=== PATIENT | male | born 1940 | race Caucasian/White ===

== ENCOUNTER 2018-08-02 07:32 | Day surgery (SDC) | payer MEDICARE, BC ==
[~2018-08-02 07:32] MED LIST: Lactated Ringers 1,000 ML IV SCH
[2018-08-02] MEDS ORDERED: fentaNYL 100 MCG/2 ML SDV ONE (08:37)
[2018-08-02] MEDS ORDERED: Propofol 200 MG/20 ML SDV ONE (08:37)
--- NOTE | 2018-08-02 12:42 | OR ---
PREOPERATIVE DIAGNOSES: Positive FIT test, screening colonoscopy. POSTOPERATIVE DIAGNOSES: Sigmoid diverticulosis, polyps x2 removed. PROCEDURE PROPOSED: Total flexible colonoscopy. PROCEDURE DONE: Total flexible colonoscopy with polypectomy x2. INDICATION: This is a 78-year-old gentleman who comes in for his 1st colonoscopic exam. He was found to have a positive FIT test on recent annual exam. TECHNIQUE: The patient brought to the endoscopy suite, placed in left lateral decubitus position. He was sedated per [address] [facility] with propofol. The flexible video colonoscope was then passed transanally and under visualization advanced to the cecum. The sacroiliac area was unremarkable as well as the ascending colon, but in the transverse colon at 90 cm, he was found to have a small polyp removed with 2 bites of the cold biopsy forceps and submitted for pathologic examination. The remainder of the transverse and descending colon were unremarkable. The sigmoid colon revealed mild diverticulosis and at 20 cm, there was a 2nd polyp, again removed with 1 bite of the cold biopsy forceps and submitted for pathologic examination, and the remainder of the rectosigmoid was normal as the scope was then withdrawn. He tolerated procedure well. FINAL IMPRESSION: 1. Colonic polyps x2, 90 and 20 cm, removed. 2. Sigmoid diverticulosis. PLAN: The patient will be sent a letter with pathology report and I felt that at his age he does not need any future followup examinations. SCM: 08/02/2018 10:02:18 MODL: 08/02/2018 12:36:09 /[id number]
--- NOTE | 2018-08-13 16:10 | LETTER ---
08/12/2018 RE: MADELINE Pascual ARVIZU : 1940 Dear Mr. Arvizu The polyps removed from your colon were benign, but one was considered a precancerous one and the other one was not. Depending on your health, I would say you should consider 1 more repeat examination in five years' time to make sure that you have not formed any new polyps. If you have any further questions regarding this, feel free to call. Respectfully, JANUARY
== END 2018-08-02 11:45 | disposition home or self-care (01) ==
LOC: VM.SDS 07:32
PROVIDERS: ATTEND Surgery
DX: R19.5 Other fecal abnormalities (principal); D12.3 Benign neoplasm of transverse colon; K63.5 Polyp of colon; K57.30 Diverticulosis of large intestine without perforation or abscess without bleeding; I11.0 Hypertensive heart disease with heart failure; I50.9 Heart failure, unspecified; E66.9 Obesity, unspecified; Z68.39 Body mass index [BMI] 39.0-39.9, adult; I25.810 Atherosclerosis of coronary artery bypass graft(s) without angina pectoris; E78.5 Hyperlipidemia, unspecified; N40.1 Benign prostatic hyperplasia with lower urinary tract symptoms; Z79.899 Other long term (current) drug therapy
CPT/HCPCS: 00811; 45380; 88305; J2704; J3010; J7120

== ENCOUNTER 2018-11-05 09:09 | Emergency (ER) | payer MEDICARE, BC ==
[2018-11-05] MEDS ORDERED: Sodium Chloride 0.9% 10 ML Syringe FLUSH PRN (09:23)
[2018-11-05] MEDS: Sodium Chloride 0.9% 1,000 ML IV ONE (09:29)
--- NOTE | 2018-11-05 10:01 | EDM.PDOC ---
ED HPI GENERAL MEDICAL PROBLEM - General Chief Complaint: General Stated Complaint: PASSED OUT, THROWING UP Time Seen by Provider: 11/05/18 09:10 Source of Information: Reports: Patient, EMS History Limitations: Reports: No Limitations - History of Present Illness INITIAL COMMENTS - FREE TEXT/NARRATIVE: Pt. states that he woke up this AM feeling short of breath, chest pain, and lightheadedness. He states that he was sitting at his kitchen table. He states that he experienced an odd sensation in his chest and subsequently had a LOC. He woke up on the floor. Unknown exactly how long he was unresponsive, but it was brief. He struck his head on the way down and sustained an abrasion to his head. Pt. he been having similar symptoms in the recent past. He was seen in the clinic 10/16/18 for increased shortness of breath, intermittent chest pain, and postural lightheadedness, particularly when he is bending over tending to his garden. Today, his complaint on admission to ER is nausea (he did receive zofran 4mg IV) and extreme fatigue, worse than normal. He was incontinent of urine during this even this AM. Pt. has a significant cardiac history and underwent CABG in 2001 and angiogram for unstable angina with CRUM in 2013 with some stenosis but nothing meeting criteria for stenting. His last EF was 60% but at one point it was down to 35%. He is currently on maximal medical treatment for CAD/CHF including lasix, imdur , ACEI, and carvedilol. Pt. had a carotid US which showed 67% occlusion L carotid with plans to medically manage the disease at this point. Pt. denies any fever, chills, blood in stools, current chest pain, abdominal pain, or other complaints other than the extreme fatigue and nausea/vomiting. He states that the shortness of breath has improved. Pt. was incontinent of urine during this even as well. Onset: Today Location: Reports: Head, Generalized Associated Symptoms: Reports: Chest Pain, Shortness of Breath - Related Data Allergies Allergy/AdvReac Type Severity Reaction Status Date / Time No Known Allergies Allergy Verified 11/05/18 10:00 Home Meds: Home Meds Carvedilol [Coreg] 12.5 mg PO BID 05/28/13 [History] Furosemide [Lasix] 20 mg PO ASDIRECTED 05/28/13 [History] Isosorbide Mononitrate [Imdur] 15 mg PO DAILY 05/28/13 [History] Lisinopril 20 mg PO DAILY 05/28/13 [History] Nitroglycerin [Nitrostat] 0.4 mg SL ASDIRECTED PRN 05/28/13 [History] Simvastatin [Zocor] 20 mg PO BEDTIME 05/28/13 [History] Acetaminophen [Tylenol] 650 mg PO Q4H PRN 08/01/18 [History] Aspirin [Ecotrin] 81 mg PO DAILY 08/01/18 [History] Celecoxib 1 tab PO DAILY 08/01/18 [History] Cyanocobalamin (Vitamin B-12) [B-12] 1,000 mcg PO DAILY 08/01/18 [History] Tamsulosin HCl 1 cap PO DAILY 08/01/18 [History] Past Medical History HEENT History: Reports: Cataract, Impaired Vision Cardiovascular History: Reports: CAD, Heart Failure, High Cholesterol, Hypertension, Other (See Below) Other Cardiovascular History: Left carotid artery stenosis Respiratory History: Reports: Bronchitis, Recurrent Gastrointestinal History: Reports: GERD Other Gastrointestinal History: Change in bowel habits Genitourinary History: Reports: BPH, Prostate Disorder Musculoskeletal History: Reports: Back Pain, Chronic, Osteoarthritis, Other ( See Below) Other Musculoskeletal History: SI joint pain Neurological History: Reports: Vertigo Psychiatric History: Reports: Depression Endocrine/Metabolic History: Reports: Obesity/BMI 30+ Hematologic History: Reports: None Immunologic History: Reports: None Oncologic (Cancer) History: Reports: Basal Cell Carcinoma Dermatologic History: Reports: Other (See Below) Other Dermatologic History: Actinic keratosis - Past Surgical History Cardiovascular Surgical History: Reports: Coronary Artery Bypass GI Surgical History: Reports: Hernia Repair/Other Musculoskeletal Surgical History: Reports: None Oncologic Surgical History: Reports: Other (See Below) Other Oncologic Surgeries/Procedures: Biopsy of forehead ED ROS GENERAL - Review of Systems Review Of Systems: See Below Constitutional: Reports: Malaise, Fatigue. Denies: Fever, Chills, Diaphoresis HEENT: Reports: No Symptoms Respiratory: Reports: Shortness of Breath. Denies: Cough Cardiovascular: Reports: Chest Pain (resolved) Endocrine: Reports: No Symptoms GI/Abdominal: Reports: Nausea, Vomiting : Reports: No Symptoms, Incontinence Musculoskeletal: Reports: No Symptoms Skin: Reports: No Symptoms Neurological: Reports: Dizziness, Syncope Psychiatric: Reports: No Symptoms Hematologic/Lymphatic: Reports: No Symptoms Immunologic: Reports: No Symptoms ED EXAM, GENERAL - Physical Exam Exam: See Below Exam Limited By: No Limitations General Appearance: Alert, WD/WN, No Apparent Distress Eye Exam: Bilateral Eye: EOMI, Normal Fundi, Normal Inspection, PERRL Throat/Mouth: Normal Inspection, Normal Lips, No Airway Compromise Head: Other (scalp abrasion to L forehead area.) Neck: Normal Inspection, Supple, Non-Tender Respiratory/Chest: No Respiratory Distress, Lungs Clear, Normal Breath Sounds, No Accessory Muscle Use, Chest Non-Tender Cardiovascular: Normal Peripheral Pulses, Regular Rate, Rhythm, No Edema, No JVD GI/Abdominal: Soft, Non-Tender, No Organomegaly, No Distention, No Mass (Male) Exam: Other (incontinent) Rectal (Males) Exam: Deferred Back Exam: Normal Inspection, Full Range of Motion Extremities: Normal Inspection, Normal Range of Motion, Non-Tender, No Pedal Edema, Normal Capillary Refill Neurological: Alert, Oriented, CN II-XII Intact, Normal Cognition, No Motor/ Sensory Deficits Psychiatric: Normal Affect, Normal Mood Skin Exam: Warm, Dry, Intact, Normal Color, No Rash Lymphatic: No Adenopathy EKG INTERPRETATION Rhythm: NSR [place]: Normal P-Wave: Present QRS: Normal ST-T: Normal QT: Normal Course - Vital Signs Last Recorded V/S: Last Vital Signs Temp 35.9 C 11/05/18 09:10 Pulse 82 11/05/18 11:22 Resp 14 11/05/18 11:22 BP 137/87 11/05/18 11:22 Pulse Ox 96 11/05/18 11:22 - Orders/Labs/Meds Orders: Active Orders 24 hr Category Date Time Status EKG Documentation Completion [RC] STAT Care 11/05/18 09:21 Active CBC W/O DIFF,HEMOGRAM [HEME] Q3D Lab 11/06/18 07:00 Ordered CBC W/O DIFF,HEMOGRAM [HEME] Q3D Lab 11/09/18 07:00 Ordered CBC W/O DIFF,HEMOGRAM [HEME] Q3D Lab 11/12/18 07:00 Ordered CBC W/O DIFF,HEMOGRAM [HEME] Q3D Lab 11/15/18 07:00 Ordered CBC W/O DIFF,HEMOGRAM [HEME] Q3D Lab 11/18/18 07:00 Ordered CBC W/O DIFF,HEMOGRAM [HEME] Q3D Lab 11/21/18 07:00 Ordered CBC W/O DIFF,HEMOGRAM [HEME] Q3D Lab 11/24/18 07:00 Ordered UA W/MICROSCOPIC [URIN] Stat Lab 11/05/18 09:22 Ordered Heparin Sodium/0.45% NaCl [Heparin 25,000 Units in 1/2 Med 11/05/18 10:25 Active NS 500 ML] 25,000 units in 500 ml IV NOW Sodium Chloride 0.9% [Saline Flush] Med 11/05/18 09:23 Active 10 ml FLUSH ASDIRECTED PRN Peripheral IV Insertion Adult [OM.PC] Routine Oth 11/05/18 09:23 Ordered Medication Orders Heparin Sodium/Sodium Chloride (Heparin 25,000 Units In 1/2 Ns 500 Ml) 25,000 units in 500 mls @ 20 mls/hr IV NOW STA; Protocol Stop: 11/06/18 11:24 Last Admin: 11/05/18 10:35 Dose: 20 mls/hr Sodium Chloride (Saline Flush) 10 ml FLUSH ASDIRECTED PRN PRN Reason: Keep Vein Open Labs: Laboratory Tests 11/05/18 11/05/18 11/05/18 Range/Units 09:35 09:35 09:35 WBC 7.1 (4.0-10.0) x10^3/uL RBC 4.47 L (4.5-6.0) x10^6/uL Hgb 13.9 L (14.0-18.0) g/dL Hct 41.5 (40.0-52.0) % MCV 92.8 (78.0-93.0) fL MCH 31.1 (26.0-32.0) pg MCHC 33.5 (32.0-36.0) g/dL RDW Coeff of Charla 13.2 (10.0-15.0) % Plt Count 109 L (130-400) x10^3/uL Neut % (Auto) 76.4 (50.0-80.0) % Lymph % (Auto) 14.1 L (25.0-50.0) % Ransom % (Auto) 6.2 (2.0-11.0) % Eos % (Auto) 3.2 (0.0-4.0) % Baso % (Auto) 0.1 L (0.2-1.2) % PT 10.6 (10.0-12.8) SEC INR 0.9 L (2.0-3.5) D-Dimer, Quantitative 6.80 H (<=0.58) mg/LFEU Sodium 140 (136-145) mmol/L Potassium 4.0 (3.5-5.1) mmol/L Chloride 104 (98-107) mmol/L Carbon Dioxide 25 (21-32) mmol/L Anion Gap 15.0 (10-20) mmol/L BUN 20 H (7-18) mg/dL Creatinine 1.1 (0.70-1.30) mg/dL Est Cr Clr Drug Dosing TNP Estimated GFR (MDRD) > 60 Glucose 157 H (74-106) mg/dL Lactic Acid (0.4-2.0) mmol/L Calcium 8.6 (8.5-10.1) mg/dL Corrected Calcium 9.40 (8.5-10.1) mg/dL Phosphorus 2.5 L (2.6-4.7) mg/dL Magnesium 1.9 (1.8-2.4) mg/dL Total Bilirubin 0.6 (0.2-1.0) mg/dL AST 19 (15-37) U/L ALT 23 (16-63) U/L Alkaline Phosphatase 93 (46-116) U/L Troponin I 0.232 H* (<=0.056) ng/mL C-Reactive Protein 1.3 H (<=0.9) mg/dL Total Protein 7.1 (6.4-8.2) g/dL Albumin 3.0 L (3.4-5.0) g/dL Globulin 4.1 Albumin/Globulin Ratio 0.73 TSH, Ultra Sensitive 2.079 (0.358-3.74) uIU/mL 11/05/18 Range/Units 09:35 WBC (4.0-10.0) x10^3/uL RBC (4.5-6.0) x10^6/uL Hgb (14.0-18.0) g/dL Hct (40.0-52.0) % MCV (78.0-93.0) fL MCH (26.0-32.0) pg MCHC (32.0-36.0) g/dL RDW Coeff of Charla (10.0-15.0) % Plt Count (130-400) x10^3/uL Neut % (Auto) (50.0-80.0) % Lymph % (Auto) (25.0-50.0) % Ransom % (Auto) (2.0-11.0) % Eos % (Auto) (0.0-4.0) % Baso % (Auto) (0.2-1.2) % PT (10.0-12.8) SEC INR (2.0-3.5) D-Dimer, Quantitative (<=0.58) mg/LFEU Sodium (136-145) mmol/L Potassium (3.5-5.1) mmol/L Chloride (98-107) mmol/L Carbon Dioxide (21-32) mmol/L Anion Gap (10-20) mmol/L BUN (7-18) mg/dL Creatinine (0.70-1.30) mg/dL Est Cr Clr Drug Dosing Estimated GFR (MDRD) Glucose (74-106) mg/dL Lactic Acid 1.5 (0.4-2.0) mmol/L Calcium (8.5-10.1) mg/dL Corrected Calcium (8.5-10.1) mg/dL Phosphorus (2.6-4.7) mg/dL Magnesium (1.8-2.4) mg/dL Total Bilirubin (0.2-1.0) mg/dL AST (15-37) U/L ALT (16-63) U/L Alkaline Phosphatase (46-116) U/L Troponin I (<=0.056) ng/mL C-Reactive Protein (<=0.9) mg/dL Total Protein (6.4-8.2) g/dL Albumin (3.4-5.0) g/dL Globulin Albumin/Globulin Ratio TSH, Ultra Sensitive (0.358-3.74) uIU/mL Meds: Medications Generic Name Dose Route Start Last Admin Trade Name Freq PRN Reason Stop Dose Admin Heparin Sodium/Sodium Chloride 25,000 units in 500 mls @ 20 mls/hr 11/05/18 10 :25 11/05/18 10:35 Heparin 25,000 Units In 1/2 Ns 500 Ml IV 11/06/18 11:24 20 mls/hr NOW STA Administration Protocol Sodium Chloride 10 ml 11/05/18 09:23 Saline Flush FLUSH ASDIRECTED PRN Keep Vein Open Discontinued Medications Generic Name Dose Route Start Last Admin Trade Name Nereida PRN Reason Stop Dose Admin Aspirin 324 mg 11/05/18 10:24 11/05/18 10:24 Aspirin PO 11/05/18 10:25 324 mg ONETIME ONE Administration Heparin Sodium (Porcine) 4,000 units 11/05/18 10:24 11/05/18 11:07 Heparin Sodium IVPUSH 11/05/18 10:25 Not Given .BOLUS ONE Heparin Sodium (Porcine) 4,000 units 11/05/18 10:25 11/05/18 10:33 Heparin Sodium IVPUSH 11/05/18 10:26 4,000 units .BOLUS ONE Administration Sodium Chloride 1,000 mls @ 1,000 mls/hr 11/05/18 09:23 11/05/18 09:29 Normal Saline IV 11/05/18 10:22 1,000 mls/hr .BOLUS ONE Administration Iopamidol 100 ml 11/05/18 10:45 11/05/18 10:58 Isovue-300 (61%) IVPUSH 11/05/18 10:46 100 ml ONETIME ONE Administration Metoclopramide HCl 5 mg 11/05/18 10:03 11/05/18 10:10 Reglan IVPUSH 11/05/18 10:04 5 mg ONETIME ONE Administration - Radiology Interpretation Free Text/Narrative:: CT angiogram shows large bilateral PE, appears larger and more complex on the R. CT brain is negative for acute pathology Chest x-ray is negative. - Re-Assessments/Exams Free Text/Narrative Re-Assessment/Exam: IV access had been established. He received 4 mg zofran IV. He was given reglan 5 mg Iv for continued nausea. He received a total of 1 liter of NS at this point. He was heparinized with a 4000U/bolus and a 1000U/hr infusion. He denies any pain or other symptoms at this time. Departure - Departure Time of Disposition: 11:40 Disposition: DC/Tfer to Acute Hospital 02 Clinical Impression: PE, Pulmonary embolism - Discharge Information Referrals: Nati Villalpando DO [Primary Care Provider] - Forms: ED Department Discharge, Interfacility Transfer EMTALA - Problem List Review Problem List Initiated/Reviewed/Updated: Yes - My Orders Last 24 Hours: My Active Orders 11/05/18 09:21 EKG Documentation Completion [RC] STAT 11/05/18 09:22 UA W/MICROSCOPIC [URIN] Stat 11/05/18 09:23 Sodium Chloride 0.9% [Saline Flush] 10 ml FLUSH ASDIRECTED PRN Peripheral IV Insertion Adult [OM.PC] Routine 11/05/18 10:25 Heparin Sodium/0.45% NaCl [Heparin 25,000 Units in 1/2 NS 500 ML] 25,000 units in 500 ml IV NOW 11/06/18 07:00 CBC W/O DIFF,HEMOGRAM [HEME] Q3D 11/09/18 07:00 CBC W/O DIFF,HEMOGRAM [HEME] Q3D 11/12/18 07:00 CBC W/O DIFF,HEMOGRAM [HEME] Q3D 11/15/18 07:00 CBC W/O DIFF,HEMOGRAM [HEME] Q3D 11/18/18 07:00 CBC W/O DIFF,HEMOGRAM [HEME] Q3D 11/21/18 07:00 CBC W/O DIFF,HEMOGRAM [HEME] Q3D 11/24/18 07:00 CBC W/O DIFF,HEMOGRAM [HEME] Q3D - Assessment/Plan Last 24 Hours: My Active Orders 11/05/18 09:21 EKG Documentation Completion [RC] STAT 11/05/18 09:22 UA W/MICROSCOPIC [URIN] Stat 11/05/18 09:23 Sodium Chloride 0.9% [Saline Flush] 10 ml FLUSH ASDIRECTED PRN Peripheral IV Insertion Adult [OM.PC] Routine 11/05/18 10:25 Heparin Sodium/0.45% NaCl [Heparin 25,000 Units in 1/2 NS 500 ML] 25,000 units in 500 ml IV NOW 11/06/18 07:00 CBC W/O DIFF,HEMOGRAM [HEME] Q3D 11/09/18 07:00 CBC W/O DIFF,HEMOGRAM [HEME] Q3D 11/12/18 07:00 CBC W/O DIFF,HEMOGRAM [HEME] Q3D 11/15/18 07:00 CBC W/O DIFF,HEMOGRAM [HEME] Q3D 11/18/18 07:00 CBC W/O DIFF,HEMOGRAM [HEME] Q3D 11/21/18 07:00 CBC W/O DIFF,HEMOGRAM [HEME] Q3D 11/24/18 07:00 CBC W/O DIFF,HEMOGRAM [HEME] Q3D Plan: Spoke with Dr. Peterson, hospitalist at [facility] in [place]. He accepts the patient in transfer. He will be admitted to the intermediate care unit. Family is aware. He will be transferred via [facility] ground ambulance.
[2018-11-05] MEDS: Metoclopramide 10 MG/2 ML SDV IVPUSH ONE (10:10)
--- NOTE | 2018-11-05 10:17 | CR ---
[id number] RAD/RAD Chest PA or AP 1V EXAM: RAD Chest PA or AP 1V INDICATION: SYNCOPE COMPARISON: None. DISCUSSION: Moderate to advanced cardiomegaly. Status post median sternotomy. No infiltrate, effusion, pneumothorax, or edema. IMPRESSION: No acute findings in the chest. Ottoniel Troy MD 11/05/18 1016 Thank you for allowing us to participate in the care of your patient.
[2018-11-05 10:18] LABS: CHLORIDE,CL 104 mmol/L (98-107); SODIUM,NA 140 mmol/L (136-145)
--- NOTE | 2018-11-05 10:21 | CT ---
[id number] CT/CT Head WO IV EXAM: CT Head WO IV CLINICAL DATA: TRAUMA. SYNCOPE COMPARISON: CORRELATION IS MADE WITH THE EXAM OF JULY 06, 2015. FINDINGS: There is no mass or mass effect. There is no hemorrhage or hydrocephalus. There are no extra-axial fluid collections. There are no sites of abnormal attenuation. IMPRESSION: NO PLAIN CT EVIDENCE OF ACUTE INTRACRANIAL PROCESS. Shawn Asif MD 11/05/18 2169 Thank you for allowing us to participate in the care of your patient.
[2018-11-05] MEDS: Aspirin 81 MG Tab.Chew PO ONE (10:24)
[2018-11-05] MEDS: Heparin Sodium 5,000 Units/ML Vial IVPUSH ONE ×2 (10:33→11:07)
[2018-11-05] MEDS: Heparin Sodium/0.45% NaCl 25,000 UNITS/500 ML BAG IV STA (10:35)
[2018-11-05] MEDS: Iopamidol 612 MG/ML 100 ML Bottle IVPUSH ONE (10:58)
--- NOTE | 2018-11-05 11:31 | CT ---
[id number] CT/CTA Chest Exam: CTA Chest Clinical Data: POSITIVE D-DIMER. SYNCOPE COMPARISON: NO PREVIOUS SIMILAR EXAM IS AVAILABLE FINDINGS: Extensive bilateral emboli are seen. Report called at time of dictation. The lungs are clear. There is no mediastinal mass or adenopathy. There is no adrenal mass. The great vessels are intact. There is a cyst measuring about 8 cm in diameter in segment VIII of the right lobe of the liver. IMPRESSION: LARGE DEGREE OF BILATERAL PULMONARY EMBOLI. Shawn Asif MD 11/05/18 0451 Thank you for allowing us to participate in the care of your patient.
== END 2018-11-05 12:05 | disposition short-term general hospital (02) ==
LOC: VM.ED 09:09
DX: I26.99 Other pulmonary embolism without acute cor pulmonale (principal); I11.0 Hypertensive heart disease with heart failure; I50.9 Heart failure, unspecified; F32.9 Major depressive disorder, single episode, unspecified; I25.10 Atherosclerotic heart disease of native coronary artery without angina pectoris; Z95.1 Presence of aortocoronary bypass graft; Z79.82 Long term (current) use of aspirin; Z79.899 Other long term (current) drug therapy
CPT/HCPCS: 36415; 70450; 71045; 71275; 80053; 81001; 83605; 83735; 84100; 84443; 84484; 85025; 85379; 85610; 86140; 93005; 96361; 96365; 96375; 96376; 99285-25; A9270-GY; J1644; J2765; J7030; Q9967

== ENCOUNTER 2019-12-06 17:11 | Emergency (ER) | payer MEDICARE, BC ==
[2019-12-06] MEDS ORDERED: cefTRIAXone 1 GM Vial IM ONE (17:34)
[2019-12-06] MEDS ORDERED: Take Home: Cephalexin 500 MG Cap, 4 Cap Pack PO ONE (17:35)
--- NOTE | 2019-12-06 17:43 | EDM.PDOC ---
ED HPI GENERAL MEDICAL PROBLEM - General Chief Complaint: Skin Complaint Stated Complaint: LEG PAIN Time Seen by Provider: 12/06/19 17:15 Source of Information: Reports: Patient History Limitations: Reports: No Limitations - History of Present Illness INITIAL COMMENTS - FREE TEXT/NARRATIVE: Patient presents today with concerns of a possible wound infection. Slipped while getting out of the pontoon one week ago and landed on the dock, cutting his leg. States wound is starting to drain, skin around is getting very red and warm. Drainage has been yellowish, thick at times. Has more discomfort now when he is walking. No fevers. Onset: Gradual Duration: Day(s): Location: Reports: Lower Extremity, Left Quality: Reports: Ache Severity: Mild Improves with: Reports: Rest Worsens with: Reports: Movement Associated Symptoms: Denies: Fever/Chills - Related Data Allergies Allergy/AdvReac Type Severity Reaction Status Date / Time No Known Allergies Allergy Verified 12/06/19 17:31 Home Meds: Home Meds Furosemide [Lasix] 20 mg PO ASDIRECTED 05/28/13 [History] Isosorbide Mononitrate [Imdur] 15 mg PO DAILY 05/28/13 [History] Lisinopril 20 mg PO DAILY 05/28/13 [History] Nitroglycerin [Nitrostat] 0.4 mg SL ASDIRECTED PRN 05/28/13 [History] Simvastatin [Zocor] 20 mg PO BEDTIME 05/28/13 [History] carvediloL [Coreg] 12.5 mg PO BID 05/28/13 [History] Acetaminophen [Tylenol] 650 mg PO Q4H PRN 08/01/18 [History] Aspirin [Ecotrin] 81 mg PO DAILY 08/01/18 [History] Celecoxib 1 tab PO DAILY 08/01/18 [History] Cyanocobalamin (Vitamin B-12) [B-12] 1,000 mcg PO DAILY 08/01/18 [History] Tamsulosin HCl 1 cap PO DAILY 08/01/18 [History] Past Medical History HEENT History: Reports: Cataract, Impaired Vision Cardiovascular History: Reports: CAD, Heart Failure, High Cholesterol, Hypertension, Other (See Below) Other Cardiovascular History: Left carotid artery stenosis Respiratory History: Reports: Bronchitis, Recurrent Gastrointestinal History: Reports: GERD Other Gastrointestinal History: Change in bowel habits Genitourinary History: Reports: BPH, Prostate Disorder Musculoskeletal History: Reports: Back Pain, Chronic, Osteoarthritis, Other (See Below) Other Musculoskeletal History: SI joint pain Neurological History: Reports: Vertigo Psychiatric History: Reports: Depression Endocrine/Metabolic History: Reports: Obesity/BMI 30+ Hematologic History: Reports: None Immunologic History: Reports: None Oncologic (Cancer) History: Reports: Basal Cell Carcinoma Dermatologic History: Reports: Other (See Below) Other Dermatologic History: Actinic keratosis - Past Surgical History Cardiovascular Surgical History: Reports: Coronary Artery Bypass GI Surgical History: Reports: Hernia Repair/Other Musculoskeletal Surgical History: Reports: None Oncologic Surgical History: Reports: Other (See Below) Other Oncologic Surgeries/Procedures: Biopsy of forehead Social & Family History - Tobacco Use Smoking Status *Q: Unknown Ever Smoked ED ROS GENERAL - Review of Systems Review Of Systems: See Below Constitutional: Denies: Fever, Chills, Malaise, Weakness, Fatigue HEENT: Reports: No Symptoms Respiratory: Reports: No Symptoms Cardiovascular: Reports: No Symptoms Endocrine: Reports: No Symptoms GI/Abdominal: Reports: No Symptoms Musculoskeletal: Reports: Leg Pain Skin: Reports: Wound ED EXAM, SKIN/RASH Exam: See Below Exam Limited By: No Limitations General Appearance: Alert, WD/WN, No Apparent Distress Extremities: Other (Patient has 9 cm linear superficial abrasion/laceration to left leg. Much of it is scabbed but has several open areas now that are oozing purulent drainage. Surrounding tissue to anterior sommer and lateral sommer is red, warm to the touch. ) Course - Orders/Labs/Meds Meds: Medications Discontinued Medications Generic Name Dose Route Start Last Admin Trade Name Nereida PRN Reason Stop Dose Admin Ceftriaxone Sodium 1 gm 12/06/19 17:34 Rocephin IM 12/06/19 17:35 ONETIME ONE Cephalexin 1 packet 12/06/19 17:35 Take Home: Cephalexin 500 Mg, 4 Cap Pack PO 12/06/19 17:36 ONETIME ONE Lidocaine HCl 5 ml 12/06/19 17:35 Xylocaine-Mpf 1% INJECT 12/06/19 17:36 ONETIME ONE - Re-Assessments/Exams Free Text/Narrative Re-Assessment/Exam: 12/06/19 17:41 Bacitracin and telfa applied to wound. Will give Rocephin today. Start Cephalexin in am. Departure - Departure Time of Disposition: 17:41 Disposition: Home, Self-Care 01 Condition: Fair Clinical Impression: Cellulitis Qualifiers: Site of cellulitis: extremity Laterality: left - Discharge Information *PRESCRIPTION DRUG MONITORING PROGRAM REVIEWED*: No *COPY OF PRESCRIPTION DRUG MONITORING REPORT IN PATIENT KAVON: No Instructions: Cellulitis, Adult Referrals: Nati Villalpando, [Primary Care Provider] - Forms: ED Department Discharge Care Plan Goals: 1. Keep wound clean and dry, cover when needed 2. Cephalexin 500 mg four times a day for 10 days 3. Watch for increasing redness, increased pain or warmth 4. Tylenol for discomfort 5. Follow up with primary care provider if worsening concerns.
== END 2019-12-06 18:13 | disposition home or self-care (01) ==
LOC: VM.ED 17:11
DX: L03.116 Cellulitis of left lower limb (principal); I11.0 Hypertensive heart disease with heart failure; I50.9 Heart failure, unspecified; I25.10 Atherosclerotic heart disease of native coronary artery without angina pectoris; E78.00 Pure hypercholesterolemia, unspecified; N40.0 Benign prostatic hyperplasia without lower urinary tract symptoms; F32.9 Major depressive disorder, single episode, unspecified; E66.9 Obesity, unspecified; Z79.899 Other long term (current) drug therapy; Z79.82 Long term (current) use of aspirin
CPT/HCPCS: 96372; 99282; A9270; J0696; J2001; 99284-GF

== ENCOUNTER 2020-02-04 08:50 | Emergency (ER) | payer MEDICARE, BC ==
[2020-02-04] MEDS: Oxymetazoline 0.05% Nasal Spray 30 ML Bottle NAS ONE (08:50)
--- NOTE | 2020-02-04 09:03 | EDM.PDOC ---
ED HPI GENERAL MEDICAL PROBLEM - General Stated Complaint: nose bleeding Time Seen by Provider: 02/04/20 08:52 Source of Information: Reports: Patient History Limitations: Reports: No Limitations - History of Present Illness INITIAL COMMENTS - FREE TEXT/NARRATIVE: Patient comes emergency department today from home with concerns of a nosebleed. For the past couple of hours the patient is struggled with a nosebleed at home. He has had no recent trauma. He has not struggled with nosebleeds in the past. There has been no trauma to his nose. He has had no sinus congestion drainage or irritation. No sinus pressure. No fever no chills. He is on Coumadin chronically for pulmonary embolism. He has not had any change in his anticoagulation for quite some time. NO COVID exposure NO COVID concerns. - Related Data Allergies Allergy/AdvReac Type Severity Reaction Status Date / Time No Known Allergies Allergy Verified 12/06/19 17:31 Home Meds: Home Meds Furosemide [Lasix] 20 mg PO ASDIRECTED 05/28/13 [History] Isosorbide Mononitrate [Imdur] 15 mg PO DAILY 05/28/13 [History] Lisinopril 20 mg PO DAILY 05/28/13 [History] Nitroglycerin [Nitrostat] 0.4 mg SL ASDIRECTED PRN 05/28/13 [History] Simvastatin [Zocor] 20 mg PO BEDTIME 05/28/13 [History] carvediloL [Coreg] 3.125 mg PO BID 05/28/13 [History] Acetaminophen [Tylenol] 650 mg PO Q4H PRN 08/01/18 [History] Aspirin [Ecotrin] 81 mg PO DAILY 08/01/18 [History] Cyanocobalamin (Vitamin B-12) [B-12] 1,000 mcg PO DAILY 08/01/18 [History] Tamsulosin HCl 1 cap PO DAILY 08/01/18 [History] Diclofenac Sodium [Voltaren 1% Gel] 2 gm TOP QID PRN 12/06/19 [History] Meclizine [Antivert] 12.5 mg PO Q4H PRN 12/06/19 [History] Warfarin [Coumadin] 5 mg PO DAILY 12/06/19 [History] Past Medical History HEENT History: Reports: Cataract, Impaired Vision Cardiovascular History: Reports: CAD, Heart Failure, High Cholesterol, Hypertension, Other (See Below) Other Cardiovascular History: Left carotid artery stenosis Respiratory History: Reports: Bronchitis, Recurrent Gastrointestinal History: Reports: GERD Other Gastrointestinal History: Change in bowel habits Genitourinary History: Reports: BPH, Prostate Disorder Musculoskeletal History: Reports: Back Pain, Chronic, Osteoarthritis, Other (See Below) Other Musculoskeletal History: SI joint pain Neurological History: Reports: Vertigo Psychiatric History: Reports: Depression Endocrine/Metabolic History: Reports: Obesity/BMI 30+ Hematologic History: Reports: None Immunologic History: Reports: None Oncologic (Cancer) History: Reports: Basal Cell Carcinoma Dermatologic History: Reports: Other (See Below) Other Dermatologic History: Actinic keratosis - Past Surgical History Cardiovascular Surgical History: Reports: Coronary Artery Bypass GI Surgical History: Reports: Hernia Repair/Other Musculoskeletal Surgical History: Reports: None Oncologic Surgical History: Reports: Other (See Below) Other Oncologic Surgeries/Procedures: Biopsy of forehead Social & Family History - Family History Family Medical History: Noncontributory - Caffeine Use Caffeine Use: Reports: None ED ROS ENT - Review of Systems Review Of Systems: Comprehensive ROS is negative, except as noted in HPI. ED EXAM, ENT - Physical Exam Exam: See Below Exam Limited By: No Limitations General Appearance: Alert, WD/WN, No Apparent Distress Eye Exam: Bilateral Eye: Normal Inspection Ears: Normal External Exam Nose: Active Bleeding (very small amount of bleeding from the R nares. ) Mouth/Throat: Normal Inspection (other than for a small amount of bleeding down the posterior pharynx. ) Head: Atraumatic, Normocephalic Neck: Normal Inspection, Supple, Non-Tender, Full Range of Motion Respiratory/Chest: No Respiratory Distress Cardiovascular: Normal Peripheral Pulses Skin: Warm, Dry, Intact, Normal Color Course - Orders/Labs/Meds Labs: Laboratory Tests 02/04/20 02/04/20 02/04/20 Range/Units 09:06 09:06 09:06 WBC 4.9 (4.0-10.0) x10^3/uL RBC 4.49 L (4.5-6.0) x10^6/uL Hgb 13.8 L (14.0-18.0) g/dL Hct 40.9 (40.0-52.0) % MCV 91.1 (78.0-93.0) fL MCH 30.7 (26.0-32.0) pg MCHC 33.7 (32.0-36.0) g/dL RDW Coeff of Charla 13.5 (10.0-15.0) % Plt Count 134 (130-400) x10^3/uL Neut % (Auto) 55.0 (50.0-80.0) % Lymph % (Auto) 28.5 (25.0-50.0) % [place] % (Auto) 12.2 H (2.0-11.0) % Eos % (Auto) 4.3 H (0.0-4.0) % Baso % (Auto) 0.0 L (0.2-1.2) % PT 23.1 H (9.5-12.3) SEC INR 2.2 (2.0-3.5) APTT 37.8 H (25.6-32.8) SEC Sodium 142 (136-145) mmol/L Potassium 3.5 (3.5-5.1) mmol/L Chloride 105 (98-107) mmol/L Carbon Dioxide 27 (21-32) mmol/L Anion Gap 13.5 (10-20) mmol/L BUN 16 (7-18) mg/dL Creatinine 1.3 (0.70-1.30) mg/dL Est Cr Clr Drug Dosing TNP Estimated GFR (MDRD) 53 Glucose 112 H (74-106) mg/dL Calcium 8.7 (8.5-10.1) mg/dL Meds: Medications Discontinued Medications Generic Name Dose Route Start Last Admin Trade Name Freq PRN Reason Stop Dose Admin Oxymetazoline HCl 1 ml 02/04/20 08:50 Nasal Decongestant [place] NIR 02/04/20 08:51 ONETIME ONE - Re-Assessments/Exams Free Text/Narrative Re-Assessment/Exam: 02/04/20 09:02 Initially Afrin was instilled to bilateral nares and direct pressure which has not been tried yet for the next 20 minutes for initial therapy. 02/04/20 09:57 After the above therapy the patient had no active bleeding nares or in the posterior pharynx. His INR is 2.2. We will discharge him home at this time. We talked about how we can take care of this at home and what to do if he is unable to control it. He is comfortable with this plan and his questions are answered. Departure - Departure Time of Disposition: 09:52 Disposition: Home, Self-Care 01 Clinical Impression: Epistaxis - Discharge Information Instructions: Nosebleed, [id number] Additional Instructions: Your INR is 2.2 today. If bleeding reoccurs, 2 sprays of the Afrin or Oxymetazoline into each nostril and then hold pressure as shown in the ED in the area were shown to pinch your nose with direct pressure for 20 minutes and do not let up. If this does not stop the bleeding recheck at that time. After 24 hours OTC Saline Nasal spray 2 sprays each nostril twice daily to keep your nose moist to keep from bleeding as well. Return to the ED if new or worsening symptoms. Follow up with PCP provider if any concerns.
[2020-02-04 09:24] LABS: ANION GAP 13.5 mmol/L (10-20); CHLORIDE,CL 105 mmol/L (98-107); SODIUM,NA 142 mmol/L (136-145)
[2020-02-04 09:28] LABS: PTT,PARTIAL THROMBOPLSTIN TIME 37.8 SEC (25.6-32.8)
== END 2020-02-04 10:05 | disposition home or self-care (01) ==
LOC: VM.ED 08:50
DX: R04.0 Epistaxis (principal); I25.10 Atherosclerotic heart disease of native coronary artery without angina pectoris; E78.00 Pure hypercholesterolemia, unspecified; I11.0 Hypertensive heart disease with heart failure; I50.9 Heart failure, unspecified; E66.9 Obesity, unspecified; Z68.41 Body mass index [BMI] 40.0-44.9, adult; Z79.82 Long term (current) use of aspirin; Z79.01 Long term (current) use of anticoagulants
CPT/HCPCS: 36415; 80048; 85025; 85610; 85730; 99284; A9270; 99283

== ENCOUNTER 2022-02-14 15:47 | Emergency (ER) | payer MEDICARE, BC ==
[2022-02-14 19:32] VITALS: BP 147/74; PULSE 76
== END 2022-02-14 17:39 | disposition home or self-care (01) ==
LOC: VM.ED 15:47
DX: N40.1 Benign prostatic hyperplasia with lower urinary tract symptoms (principal); R33.8 Other retention of urine; I25.10 Atherosclerotic heart disease of native coronary artery without angina pectoris; E78.00 Pure hypercholesterolemia, unspecified; I11.0 Hypertensive heart disease with heart failure; I50.9 Heart failure, unspecified; E66.9 Obesity, unspecified; Z79.899 Other long term (current) drug therapy; Z79.82 Long term (current) use of aspirin; Z68.41 Body mass index [BMI] 40.0-44.9, adult
CPT/HCPCS: 51702; 81001; 99284

== ENCOUNTER 2022-07-15 16:59 | Inpatient (IN) | payer MEDICARE, BC ==
[2022-07-15 17:50] LABS: ANION GAP 13.4 mmol/L (5-15); CHLORIDE,CL 103 mmol/L (98-107); ESTIMATED GFR 61 mL/min (>=60); SODIUM,NA 137 mmol/L (136-145)
[2022-07-15] MEDS ORDERED: Acetaminophen 325 MG Tab PO ONE (18:12)
[2022-07-15 18:25] LABS: CORONAVIRUS COVID-19 NAA POSITIVE (NEGATIVE); RESPIRATORY SYNCYTIAL VIR NAA NEGATIVE (NEGATIVE)
[2022-07-15] MEDS ORDERED: Sodium Chloride 0.9% 1,000 ML IV SCH (18:30)
[2022-07-15] MEDS ORDERED: Dexamethasone 4 MG/ML SDV IVPUSH ONE (18:54)
[2022-07-15] MEDS ORDERED: Ondansetron 4 MG Tab.DIS PO PRN (21:27)
[2022-07-15] MEDS ORDERED: Acetaminophen 325 MG Tab PO PRN (21:41)
[2022-07-15] MEDS ORDERED: Diclofenac Sodium 1% Gel 100 GM Tube TOP PRN (21:41)
[2022-07-15] MEDS ORDERED: Nitroglycerin 0.4 MG Tab.SL SL PRN (21:41)
[2022-07-15] MEDS ORDERED: REMDESIVIR 200 MG in Sodium Chloride 0.9% 250 ML IV ONE (22:00)
[2022-07-16 08:13] LABS: ANION GAP 16.1 mmol/L (5-15)
[2022-07-16] MEDS: Aspirin 81 MG Tab.EC PO SCH (08:29)
[2022-07-16] MEDS: Cyanocobalamin (Vitamin B12) 1,000 MCG Tab PO SCH (08:29)
[2022-07-16] MEDS: Lisinopril 20 MG Tab PO SCH (08:29)
[2022-07-16] MEDS: Carvedilol 3.125 MG Tab PO SCH ×2 (08:30→22:04)
[2022-07-16] MEDS ORDERED: Isosorbide Mononitrate 30 MG Tab.ER PO SCH (09:00)
[2022-07-16] MEDS ORDERED: Tamsulosin 0.4 MG Cap.ER PO SCH (09:00)
[2022-07-16] MEDS ORDERED: Furosemide 20 MG Tab PO SCH (12:00)
[2022-07-16] MEDS ORDERED: Meclizine 25 MG Tab PO PRN (12:14)
[2022-07-16] MEDS ORDERED: Furosemide 40 MG Tab PO ONE (12:16)
[2022-07-16] MEDS ORDERED: Warfarin 2.5 MG Tab PO SCH (20:00)
[2022-07-16] MEDS: Isosorbide Mononitrate 30 MG Tab.ER PO SCH (22:02)
[2022-07-16] MEDS: Dexamethasone 4 MG/ML SDV IVPUSH SCH (22:02)
[2022-07-16] MEDS: Gabapentin 100 MG Cap PO SCH (22:04)
[2022-07-16] MEDS: Tamsulosin 0.4 MG Cap.ER PO SCH (22:06)
[2022-07-16] MEDS: Benzonatate 100 MG Cap PO PRN (22:06)
[2022-07-16] MEDS: REMDESIVIR 100 MG in Sodium Chloride 0.9% 100 ML IV SCH (22:28)
[2022-07-16] MEDS: Triamcinolone Acetonide 0.1% Crm 454 GM Jar TOP SCH (22:38)
[2022-07-17] MEDS: Benzocaine/Cetylpyridinium/Menthol Lozenge MUCMEM PRN (03:00)
[2022-07-17] MEDS: Gabapentin 100 MG Cap PO SCH ×2 (07:59→21:32)
[2022-07-17] MEDS: Carvedilol 3.125 MG Tab PO SCH ×2 (08:15→21:33)
[2022-07-17] MEDS: Aspirin 81 MG Tab.EC PO SCH (08:15)
[2022-07-17] MEDS: Lisinopril 20 MG Tab PO SCH (08:16)
[2022-07-17] MEDS: Benzonatate 100 MG Cap PO PRN ×2 (08:17→21:28)
[2022-07-17] MEDS: Finasteride 5 MG Tab PO SCH (08:18)
[2022-07-17] MEDS: Cyanocobalamin (Vitamin B12) 1,000 MCG Tab PO SCH (08:18)
[2022-07-17] MEDS: Dexamethasone 4 MG/ML SDV IVPUSH SCH (08:22)
[2022-07-17] MEDS: Furosemide 40 MG Tab PO SCH ×2 (08:30→21:28)
[2022-07-17] MEDS ORDERED: Furosemide 40 MG Tab PO SCH (09:00)
[2022-07-17] MEDS ORDERED: Celecoxib 100 MG Cap PO SCH (09:00)
[2022-07-17] MEDS ORDERED: Albuterol/Ipratropium 3.0-0.5 MG/3 ML Neb Soln NEB PRN (12:48)
[2022-07-17] MEDS: Triamcinolone Acetonide 0.1% Crm 454 GM Jar TOP SCH ×2 (14:44→21:27)
[2022-07-17] MEDS ORDERED: Warfarin 2.5 MG Tab PO SCH ×2 (20:00)
[2022-07-17] MEDS: Tamsulosin 0.4 MG Cap.ER PO SCH (21:27)
[2022-07-17] MEDS: Isosorbide Mononitrate 30 MG Tab.ER PO SCH (21:29)
[2022-07-17] MEDS: Warfarin 2.5 MG Tab PO SCH (21:32)
[2022-07-17] MEDS: REMDESIVIR 100 MG in Sodium Chloride 0.9% 100 ML IV SCH (21:34)
[2022-07-18] MEDS: Benzocaine/Cetylpyridinium/Menthol Lozenge MUCMEM PRN (04:57)
[2022-07-18 07:12] LABS: ANION GAP 10.9 mmol/L (5-15)
[2022-07-18] MEDS: Cyanocobalamin (Vitamin B12) 1,000 MCG Tab PO SCH (08:48)
[2022-07-18] MEDS: Finasteride 5 MG Tab PO SCH (08:49)
[2022-07-18] MEDS: Furosemide 40 MG Tab PO SCH ×2 (08:49→20:04)
[2022-07-18] MEDS: Aspirin 81 MG Tab.EC PO SCH (08:49)
[2022-07-18] MEDS: Triamcinolone Acetonide 0.1% Crm 454 GM Jar TOP SCH ×2 (08:50→20:10)
[2022-07-18] MEDS: Carvedilol 3.125 MG Tab PO SCH ×2 (08:54→20:04)
[2022-07-18] MEDS: Lisinopril 20 MG Tab PO SCH (08:54)
[2022-07-18] MEDS ORDERED: REMDESIVIR 100 MG in Sodium Chloride 0.9% 100 ML IV SCH ×2 (13:00→19:00)
[2022-07-18] MEDS: Isosorbide Mononitrate 30 MG Tab.ER PO SCH (20:03)
[2022-07-18] MEDS: Tamsulosin 0.4 MG Cap.ER PO SCH (20:04)
[2022-07-18] MEDS: Warfarin 2.5 MG Tab PO SCH (20:04)
[2022-07-18] MEDS: Gabapentin 100 MG Cap PO SCH (20:04)
[2022-07-19] MEDS: Benzonatate 100 MG Cap PO PRN (04:27)
[2022-07-19] MEDS: Benzocaine/Cetylpyridinium/Menthol Lozenge MUCMEM PRN (04:27)
[2022-07-19 07:53] LABS: ANION GAP 10.6 mmol/L (5-15)
[2022-07-19] MEDS: Triamcinolone Acetonide 0.1% Crm 454 GM Jar TOP SCH (09:02)
[2022-07-19] MEDS: Cyanocobalamin (Vitamin B12) 1,000 MCG Tab PO SCH (09:08)
[2022-07-19] MEDS: Lisinopril 20 MG Tab PO SCH (09:08)
[2022-07-19] MEDS: Finasteride 5 MG Tab PO SCH (09:08)
[2022-07-19] MEDS: Aspirin 81 MG Tab.EC PO SCH (09:08)
[2022-07-19] MEDS: Furosemide 40 MG Tab PO SCH (09:08)
[2022-07-19] MEDS: Carvedilol 3.125 MG Tab PO SCH (09:08)
[2022-07-19] MEDS ORDERED: REMDESIVIR 100 MG in Sodium Chloride 0.9% 100 ML IV SCH (11:00)
== END 2022-07-19 13:22 | disposition home or self-care (01) | DRG 178 ==
LOC: VM.ED 16:59 → VM.MS 19:41
PROVIDERS: ADMIT Family Medicine; ATTEND Internal Medicine
PROC: 8E0ZXY6 Isolation (ICD-10-PCS; principal; 2022-07-15)
PROC: XW033E5 Introduction of Remdesivir Anti-infective into Peripheral Vein, Percutaneous Approach, New Technology Group 5 (ICD-10-PCS; 2022-07-15)
PROC: 3E0333Z Introduction of Anti-inflammatory into Peripheral Vein, Percutaneous Approach (ICD-10-PCS; 2022-07-15)
DX: U07.1 COVID-19 (principal); E86.0 Dehydration; R53.1 Weakness; I10 Essential (primary) hypertension; I50.32 Chronic diastolic (congestive) heart failure; E78.00 Pure hypercholesterolemia, unspecified; E66.9 Obesity, unspecified; Z68.41 Body mass index [BMI] 40.0-44.9, adult; I11.0 Hypertensive heart disease with heart failure; E78.5 Hyperlipidemia, unspecified; N40.1 Benign prostatic hyperplasia with lower urinary tract symptoms; E66.01 Morbid (severe) obesity due to excess calories; K21.9 Gastro-esophageal reflux disease without esophagitis; F32.A Depression, unspecified; G47.33 Obstructive sleep apnea (adult) (pediatric); I25.10 Atherosclerotic heart disease of native coronary artery without angina pectoris; I27.20 Pulmonary hypertension, unspecified; M19.90 Unspecified osteoarthritis, unspecified site; Z86.711 Personal history of pulmonary embolism; Z79.01 Long term (current) use of anticoagulants; Z95.1 Presence of aortocoronary bypass graft; Z79.1 Long term (current) use of non-steroidal anti-inflammatories (NSAID); Z79.82 Long term (current) use of aspirin; Z79.899 Other long term (current) drug therapy; Z98.42 Cataract extraction status, left eye; Z98.41 Cataract extraction status, right eye; Z85.828 Personal history of other malignant neoplasm of skin; Z86.16 Personal history of COVID-19; Z90.89 Acquired absence of other organs; Z87.19 Personal history of other diseases of the digestive system; Z98.890 Other specified postprocedural states
CPT/HCPCS: 0241U; 36415; 71045; 80048; 80053; 81001; 83605; 83880; 85025; 85610; 87040; 93005; 96360; 97161-GP; 99284; 99285-25; A9270-GY; J0248; J1100; J7030; J7050

== ENCOUNTER 2023-07-12 18:11 | Emergency (ER) | payer MEDICARE, BC | END 2023-07-12 18:45 | disposition home or self-care (01) | LOC: VM.ED 18:11 | DX: L76.21 Postprocedural hemorrhage of skin and subcutaneous tissue following a dermatologic procedure (principal); I11.0 Hypertensive heart disease with heart failure; I50.9 Heart failure, unspecified; I25.10 Atherosclerotic heart disease of native coronary artery without angina pectoris; E78.00 Pure hypercholesterolemia, unspecified; M19.90 Unspecified osteoarthritis, unspecified site; E66.9 Obesity, unspecified; Z86.16 Personal history of COVID-19; Z79.82 Long term (current) use of aspirin; Z79.899 Other long term (current) drug therapy; Z79.01 Long term (current) use of anticoagulants | CPT/HCPCS: 99283 ==

== ENCOUNTER 2023-09-12 01:03 | Inpatient (IN) | payer MEDICARE, BC ==
[2023-09-12] MEDS: cefTRIAXone 2 GM Vial IVPUSH ONE (01:25)
[2023-09-12 01:26] LABS: BASOPHILS PERCENT AUTO 0.1 % (0.2-1.2); EOSINOPHILS ABSOLUTE AUTO 0.2 x10^3/uL (0.0-0.5); EOSINOPHILS PERCENT AUTO 2.2 % (0.0-4.0); HEMATOCRIT 39.4 % (40.0-52.0); HEMOGLOBIN 13.7 g/dL (14.0-18.0); IMMATURE GRAN ABSOLUTE AUTO 0.02 x10^3/uL (0.00-0.07); LYMPHOCYTES ABSOLUTE AUTO 1.5 x10^3/uL (1.0-4.8); LYMPHOCYTES PERCENT AUTO 17.2 % (25.0-50.0); MEAN CORPUSCULAR HEMOGLOBIN 33.2 pg (26.0-32.0); MEAN CORPUSCULAR HGB CONC 34.8 g/dL (32.0-36.0); MEAN CORPUSCULAR VOLUME 95.4 fL (78.0-93.0); MONOCYTES ABSOLUTE AUTO 0.9 x10^3/uL (0.0-0.8); NEUTROPHILS ABSOLUTE AUTO 6.2 x10^3/uL (1.8-7.7); NEUTROPHILS PERCENT AUTO 70.3 % (50.0-80.0); PLATELET COUNT,PLT 124 x10^3/uL (130-400); RED BLOOD CELL COUNT 4.13 x10^6/uL (4.5-6.0); WHITE BLOOD CELL COUNT,WBC 8.8 x10^3/uL (4.0-10.0)
[2023-09-12 01:43] LABS: ALBUMIN 3.3 g/dL (3.4-5.0); BILIRUBIN TOTAL 0.8 mg/dL (0.2-1.0); C-REACTIVE PROTEIN 2.91 mg/dL (<=0.50); CALCIUM 8.7 mg/dL (8.5-10.1); CREATININE 1.2 mg/dL (0.70-1.30); EST CRCL DRUG DOSING (CG) 48.28 mL/min; MAGNESIUM 1.9 mg/dL (1.8-2.4); POTASSIUM,K 3.8 mmol/L (3.5-5.1); PROTEIN TOTAL,TP 6.6 g/dL (6.4-8.2)
[2023-09-12 01:44] LABS: ANION GAP 15.8 mmol/L (5-15)
[2023-09-12 01:46] LABS: PTT,PARTIAL THROMBOPLSTIN TIME 32.1 SEC (21.9-33.8)
[2023-09-12 01:47] LABS: LACTIC ACID 2.3 mmol/L (0.4-2.0)
[2023-09-12] MEDS: Lactated Ringers 1,000 ML IV SCH (01:50)
[2023-09-12] MEDS: Lactated Ringers 1,000 ML IV ONE (01:50)
[2023-09-12 02:17] LABS: INR 2.1 (0.9-1.1); PROTHROMBIN TIME 20.8 SEC (8.9-11.5)
[2023-09-12] MEDS ORDERED: Polyethylene Glycol 3350 Powder 17 GM Packet PO PRN (02:34)
[2023-09-12] MEDS: Carbidopa/Levodopa 25-100 MG Tab PO SCH (07:02)
[2023-09-12] MEDS: traMADol 50 MG Tab PO PRN (08:05)
[2023-09-12] MEDS: Isosorbide Mononitrate 30 MG Tab.ER PO SCH (08:07)
[2023-09-12] MEDS: Lisinopril 10 MG Tab PO SCH (08:07)
[2023-09-12] MEDS: Aspirin 81 MG Tab.EC PO SCH (08:08)
[2023-09-12] MEDS: Cyanocobalamin (Vitamin B12) 1,000 MCG Tab PO SCH (08:08)
[2023-09-12] MEDS: Finasteride 5 MG Tab PO SCH (08:09)
[2023-09-12] MEDS: Carvedilol 3.125 MG Tab PO SCH (08:09)
[2023-09-12 08:27] LABS: PRO B-TYPE NATRIUR PEPT,BNPPRO 528 pg/mL (<=450)
[2023-09-12] MEDS ORDERED: Furosemide 40 MG Tab PO SCH (09:00)
[2023-09-12] MEDS: Furosemide 20 MG/2 ML VIAL IV SCH (10:40)
[2023-09-12 11:12] LABS: CORONAVIRUS COVID-19 NAA NEGATIVE (NEGATIVE); INFLUENZA A NAA NEGATIVE (NEGATIVE); INFLUENZA B NAA NEGATIVE (NEGATIVE); RESPIRATORY SYNCYTIAL VIR NAA NEGATIVE (NEGATIVE)
[2023-09-12] MEDS: Warfarin 2.5 MG Tab PO SCH (20:31)
[2023-09-12] MEDS: Carbidopa/Levodopa 50-200 MG Tab.ER PO SCH (20:31)
[2023-09-12] MEDS: Tamsulosin 0.4 MG Cap.ER PO SCH (20:31)
[2023-09-12] MEDS: Simvastatin 20 MG Tab PO SCH (20:32)
[2023-09-12] MEDS: Acetaminophen 325 MG Tab PO PRN (21:37)
[2023-09-12] MEDS: cefTRIAXone 1 GM Vial IVPUSH SCH (21:39)
[2023-09-13 06:44] LABS: BASOPHILS PERCENT AUTO 0.1 % (0.2-1.2); EOSINOPHILS ABSOLUTE AUTO 0.2 x10^3/uL (0.0-0.5); EOSINOPHILS PERCENT AUTO 2.6 % (0.0-4.0); HEMOGLOBIN 13.6 g/dL (14.0-18.0); IMMATURE GRAN ABSOLUTE AUTO 0.01 x10^3/uL (0.00-0.07); LYMPHOCYTES ABSOLUTE AUTO 1.6 x10^3/uL (1.0-4.8); LYMPHOCYTES PERCENT AUTO 20.2 % (25.0-50.0); MEAN CORPUSCULAR HEMOGLOBIN 32.5 pg (26.0-32.0); MEAN CORPUSCULAR VOLUME 95.5 fL (78.0-93.0); MONOCYTES ABSOLUTE AUTO 0.9 x10^3/uL (0.0-0.8); MONOCYTES PERCENT AUTO 11.5 % (2.0-11.0); NEUTROPHILS ABSOLUTE AUTO 5.3 x10^3/uL (1.8-7.7); NEUTROPHILS PERCENT AUTO 65.5 % (50.0-80.0); PLATELET COUNT,PLT 133 x10^3/uL (130-400); RED BLOOD CELL COUNT 4.19 x10^6/uL (4.5-6.0); WHITE BLOOD CELL COUNT,WBC 8.1 x10^3/uL (4.0-10.0)
[2023-09-13 07:00] LABS: CREATININE 1.2 mg/dL (0.70-1.30); EST CRCL DRUG DOSING (CG) 48.28 mL/min
[2023-09-13 07:01] LABS: PROTHROMBIN TIME 19.4 SEC (8.9-11.5)
[2023-09-14] MEDS: Furosemide 40 MG/4 ML VIAL IV SCH (09:04)
[2023-09-14] MEDS: Sodium Chloride 0.9% 10 ML Syringe FLUSH PRN (09:07)
[2023-09-17] MEDS ORDERED: Warfarin 2.5 MG Tab PO SCH (21:00)
== END 2023-09-14 15:10 | disposition home or self-care (01) | DRG 690 ==
LOC: VM.ED 01:03 → VM.MS 02:14
PROVIDERS: ADMIT Physician Assistant; ATTEND Internal Medicine
DX: N30.00 Acute cystitis without hematuria (principal); I50.32 Chronic diastolic (congestive) heart failure; I50.9 Heart failure, unspecified; Z68.42 Body mass index [BMI] 45.0-49.9, adult; I25.810 Atherosclerosis of coronary artery bypass graft(s) without angina pectoris; K21.9 Gastro-esophageal reflux disease without esophagitis; Z66 Do not resuscitate; M54.50 Low back pain, unspecified; G89.29 Other chronic pain; I65.29 Occlusion and stenosis of unspecified carotid artery; E66.01 Morbid (severe) obesity due to excess calories; I11.0 Hypertensive heart disease with heart failure; N40.0 Benign prostatic hyperplasia without lower urinary tract symptoms; M19.90 Unspecified osteoarthritis, unspecified site; G47.33 Obstructive sleep apnea (adult) (pediatric); G20.A1 Parkinson's disease without dyskinesia, without mention of fluctuations; M10.9 Gout, unspecified; N52.9 Male erectile dysfunction, unspecified; E78.00 Pure hypercholesterolemia, unspecified; F32.A Depression, unspecified; R74.02 Elevation of levels of lactic acid dehydrogenase [LDH]; B96.4 Proteus (mirabilis) (morganii) as the cause of diseases classified elsewhere; Z95.1 Presence of aortocoronary bypass graft; Z79.01 Long term (current) use of anticoagulants; Z86.16 Personal history of COVID-19; Z79.82 Long term (current) use of aspirin; Z79.899 Other long term (current) drug therapy; Z86.711 Personal history of pulmonary embolism
CPT/HCPCS: 0241U; 36415; 51798; 71045; 80048; 80053; 82550; 83605; 83735; 83880; 84484; 85025; 85610; 85730; 86140; 96374; 97161-GP; 97165-GO; 97535-GO; 99284; 99285-25; A9270-GY; J0696; J1940; J3490; J7120

== ENCOUNTER 2024-08-11 07:23 | Emergency (ER) | payer MEDICARE, BC ==
[2024-08-11 08:21] LABS: BASOPHILS PERCENT AUTO 0.2 % (0.2-1.2); EOSINOPHILS ABSOLUTE AUTO 0.2 x10^3/uL (0.0-0.5); EOSINOPHILS PERCENT AUTO 2.9 % (0.0-4.0); HEMATOCRIT 39.3 % (40.0-52.0); HEMOGLOBIN 13.4 g/dL (14.0-18.0); IMMATURE GRAN ABSOLUTE AUTO 0.01 x10^3/uL (0.00-0.07); LYMPHOCYTES ABSOLUTE AUTO 0.9 x10^3/uL (1.0-4.8); LYMPHOCYTES PERCENT AUTO 14.7 % (25.0-50.0); MEAN CORPUSCULAR HEMOGLOBIN 31.6 pg (26.0-32.0); MEAN CORPUSCULAR HGB CONC 34.1 g/dL (32.0-36.0); MEAN CORPUSCULAR VOLUME 92.7 fL (78.0-93.0); MONOCYTES ABSOLUTE AUTO 0.9 x10^3/uL (0.0-0.8); MONOCYTES PERCENT AUTO 15.2 % (2.0-11.0); NEUTROPHILS ABSOLUTE AUTO 4.1 x10^3/uL (1.8-7.7); NEUTROPHILS PERCENT AUTO 66.8 % (50.0-80.0); PLATELET COUNT,PLT 135 x10^3/uL (130-400); RED BLOOD CELL COUNT 4.24 x10^6/uL (4.5-6.0); WHITE BLOOD CELL COUNT,WBC 6.1 x10^3/uL (4.0-10.0)
[2024-08-11 08:37] LABS: A/G RATIO 0.83; ALBUMIN 2.9 g/dL (3.4-5.0); BILIRUBIN TOTAL 0.5 mg/dL (0.2-1.0); CALCIUM 8.6 mg/dL (8.5-10.1); CREATININE 1.2 mg/dL (0.70-1.30); EST CRCL DRUG DOSING (CG) 47.46 mL/min; MAGNESIUM 2.1 mg/dL (1.8-2.4); POTASSIUM,K 3.8 mmol/L (3.5-5.1); PROTEIN TOTAL,TP 6.4 g/dL (6.4-8.2)
[2024-08-11 08:38] LABS: ANION GAP 12.8 mmol/L (5-15)
[2024-08-11 09:15] LABS: APPEARANCE,URINE CLEAR (CLEAR); BILIRUBIN,URINE NEGATIVE (NEGATIVE); GLUCOSE,URINE NEGATIVE (NEGATIVE); KETONES,URINE NEGATIVE (NEGATIVE); LEUKOCYTE ESTERASE,URINE NEGATIVE (NEGATIVE); NITRITE,URINE NEGATIVE (NEGATIVE); OCCULT BLOOD,URINE TRACE-INTACT (NEGATIVE); PH,URINE 7.5 (5.0-8.0); PROTEIN,URINE NEGATIVE (NEGATIVE); UROBILINOGEN,URINE 0.2 EU/dL (0.2)
[2024-08-11 09:16] LABS: BACTERIA,URINE RARE /HPF (NOT SEEN); COLOR,URINE DARK YELLOW (YELLOW); MUCUS,URINE RARE /LPF (NOT SEEN); RBC,URINE 0-5 /HPF (NOT SEEN); WBC,URINE 0-5 /HPF (NOT SEEN)
== END 2024-08-11 10:04 | disposition home or self-care (01) ==
LOC: VM.ED 07:23
DX: R53.1 Weakness (principal); R51.9 Headache, unspecified; I11.0 Hypertensive heart disease with heart failure; I50.9 Heart failure, unspecified; I25.10 Atherosclerotic heart disease of native coronary artery without angina pectoris; E78.00 Pure hypercholesterolemia, unspecified; E66.9 Obesity, unspecified; Z79.899 Other long term (current) drug therapy; Z79.82 Long term (current) use of aspirin; Z79.01 Long term (current) use of anticoagulants; Z86.16 Personal history of COVID-19; Z95.1 Presence of aortocoronary bypass graft; W19.XXXA Unspecified fall, initial encounter; Z68.41 Body mass index [BMI] 40.0-44.9, adult
CPT/HCPCS: 71045; 80053; 81001; 83605; 83735; 85025; 87428-QW; 99284; 99285

== ENCOUNTER 2024-08-11 15:14 | Inpatient (IN) | payer MEDICARE, BC ==
[2024-08-11 16:43] LABS: INR 2.1 (0.9-1.1)
[2024-08-11 16:46] LABS: PRO B-TYPE NATRIUR PEPT,BNPPRO 281 pg/mL (<=450)
[2024-08-11] MEDS ORDERED: Polyethylene Glycol 3350 Powder 17 GM Packet PO PRN (17:43)
[2024-08-11] MEDS ORDERED: Acetaminophen 325 MG Tab PO PRN (17:43)
[2024-08-11] MEDS ORDERED: Nitroglycerin 0.4 MG Tab.SL SL PRN (17:43)
[2024-08-11] MEDS: Furosemide 40 MG/4 ML VIAL IV ONE (19:42)
[2024-08-11] MEDS: Warfarin 2.5 MG Tab PO ONE (19:42)
[2024-08-11] MEDS: Sodium Chloride 0.9% 10 ML Syringe FLUSH PRN (19:48)
[2024-08-11] MEDS: Ipratropium 0.06% Nasal Spray 15 ML Bottle NASBOTH SCH (21:56)
[2024-08-11] MEDS: Tamsulosin 0.4 MG Cap.ER PO SCH (21:56)
[2024-08-11] MEDS: Carbidopa/Levodopa 50-200 MG Tab.ER PO SCH (21:56)
[2024-08-11] MEDS: Carbidopa/Levodopa 25-100 MG Tab PO SCH (21:57)
[2024-08-11] MEDS: Magnesium Oxide 400 MG Tab PO SCH (21:58)
[2024-08-11] MEDS: Carvedilol 3.125 MG Tab PO SCH (21:59)
[2024-08-11] MEDS: CLOTRIMAZOLE TOP SCH (22:07)
[2024-08-11] MEDS: Non-Formulary Medication 1 Each (Simvastatin [Zocor] 20 MG Tablet) PO SCH (23:26)
[2024-08-12 07:02] LABS: BASOPHILS PERCENT AUTO 0.2 % (0.2-1.2); EOSINOPHILS ABSOLUTE AUTO 0.2 x10^3/uL (0.0-0.5); EOSINOPHILS PERCENT AUTO 2.8 % (0.0-4.0); HEMATOCRIT 40.6 % (40.0-52.0); HEMOGLOBIN 13.8 g/dL (14.0-18.0); IMMATURE GRAN ABSOLUTE AUTO 0.01 x10^3/uL (0.00-0.07); LYMPHOCYTES ABSOLUTE AUTO 1.5 x10^3/uL (1.0-4.8); LYMPHOCYTES PERCENT AUTO 26.9 % (25.0-50.0); MEAN CORPUSCULAR HEMOGLOBIN 31.7 pg (26.0-32.0); MEAN CORPUSCULAR VOLUME 93.3 fL (78.0-93.0); MONOCYTES ABSOLUTE AUTO 1.1 x10^3/uL (0.0-0.8); MONOCYTES PERCENT AUTO 19.8 % (2.0-11.0); NEUTROPHILS ABSOLUTE AUTO 2.8 x10^3/uL (1.8-7.7); NEUTROPHILS PERCENT AUTO 50.1 % (50.0-80.0); PLATELET COUNT,PLT 134 x10^3/uL (130-400); RED BLOOD CELL COUNT 4.35 x10^6/uL (4.5-6.0); WHITE BLOOD CELL COUNT,WBC 5.7 x10^3/uL (4.0-10.0)
[2024-08-12 07:08] LABS: INR 1.9 (0.9-1.1); PROTHROMBIN TIME 19.6 SEC (9.6-12.0)
[2024-08-12 07:09] LABS: A/G RATIO 0.78; ALBUMIN 2.8 g/dL (3.4-5.0); ANION GAP 9.4 mmol/L (5-15); BILIRUBIN TOTAL 0.5 mg/dL (0.2-1.0); CALCIUM 8.7 mg/dL (8.5-10.1); CREATININE 1.1 mg/dL (0.70-1.30); EST CRCL DRUG DOSING (CG) 51.78 mL/min; POTASSIUM,K 3.4 mmol/L (3.5-5.1); PROTEIN TOTAL,TP 6.4 g/dL (6.4-8.2)
[2024-08-12] MEDS: Acetaminophen 650 MG Tab.ER PO PRN (07:10)
[2024-08-12] MEDS: Isosorbide Mononitrate 30 MG Tab.ER PO SCH (08:15)
[2024-08-12] MEDS: Potassium Chloride 10 MEQ Tab.ER PO ONE (08:15)
[2024-08-12] MEDS: Lisinopril 10 MG Tab PO SCH (08:15)
[2024-08-12] MEDS: Finasteride 5 MG Tab PO SCH (08:30)
[2024-08-12] MEDS: Carbidopa/Levodopa 25-100 MG Tab PO SCH (08:33)
[2024-08-12] MEDS: Cyanocobalamin (Vitamin B12) 1,000 MCG Tab PO SCH (08:35)
[2024-08-12] MEDS: Aspirin 81 MG Tab.EC PO SCH (08:36)
[2024-08-12] MEDS: Spironolactone 25 MG Tab PO ONE (08:40)
[2024-08-12] MEDS: Furosemide 40 MG/4 ML VIAL IV SCH (08:46)
[2024-08-12] MEDS: Miconazole 2% Top Powder 45 GM Container TOP SCH (10:22)
[2024-08-12] MEDS: Acetaminophen 325 MG Tab PO PRN (12:39)
[2024-08-12] MEDS: atorvaSTATin 10 MG Tab PO SCH (20:55)
[2024-08-12] MEDS: Warfarin 2.5 MG Tab PO SCH (20:56)
[2024-08-13 07:05] LABS: BASOPHILS PERCENT AUTO 0.2 % (0.2-1.2); EOSINOPHILS ABSOLUTE AUTO 0.4 x10^3/uL (0.0-0.5); EOSINOPHILS PERCENT AUTO 7.5 % (0.0-4.0); HEMATOCRIT 39.8 % (40.0-52.0); HEMOGLOBIN 13.3 g/dL (14.0-18.0); IMMATURE GRAN ABSOLUTE AUTO 0.01 x10^3/uL (0.00-0.07); LYMPHOCYTES ABSOLUTE AUTO 1.4 x10^3/uL (1.0-4.8); LYMPHOCYTES PERCENT AUTO 24.2 % (25.0-50.0); MEAN CORPUSCULAR HEMOGLOBIN 31.4 pg (26.0-32.0); MEAN CORPUSCULAR HGB CONC 33.4 g/dL (32.0-36.0); MEAN CORPUSCULAR VOLUME 94.1 fL (78.0-93.0); MONOCYTES ABSOLUTE AUTO 0.9 x10^3/uL (0.0-0.8); MONOCYTES PERCENT AUTO 15.2 % (2.0-11.0); NEUTROPHILS PERCENT AUTO 52.7 % (50.0-80.0); PLATELET COUNT,PLT 133 x10^3/uL (130-400); RED BLOOD CELL COUNT 4.23 x10^6/uL (4.5-6.0); WHITE BLOOD CELL COUNT,WBC 5.7 x10^3/uL (4.0-10.0)
[2024-08-13 07:16] LABS: CALCIUM 8.7 mg/dL (8.5-10.1); CREATININE 1.1 mg/dL (0.70-1.30); EST CRCL DRUG DOSING (CG) 51.78 mL/min; POTASSIUM,K 3.6 mmol/L (3.5-5.1)
[2024-08-13 07:18] LABS: ANION GAP 8.6 mmol/L (5-15)
[2024-08-13 07:20] LABS: INR 1.7 (0.9-1.1); PROTHROMBIN TIME 17.5 SEC (9.6-12.0)
[2024-08-13] MEDS ORDERED: Bisacodyl 10 MG Supp RECTAL PRN (08:21)
[2024-08-13] MEDS: Spironolactone 25 MG Tab PO SCH (08:47)
[2024-08-13] MEDS: Torsemide 20 MG Tab PO SCH (08:48)
[2024-08-13] MEDS: Potassium Chloride 10 MEQ Tab.ER PO SCH (08:52)
[2024-08-13] MEDS: Sennosides/Docusate Sodium 50-8.6 MG Tab PO SCH (08:53)
[2024-08-13] MEDS: Polyethylene Glycol 3350 Powder 17 GM Packet PO SCH (08:56)
[2024-08-13] MEDS: ALPRAZolam 0.25 MG Tab PO ONE (10:43)
[2024-08-13] MEDS: Warfarin 5 MG Tab PO ONE (20:50)
[2024-08-14] MEDS ORDERED: Carbidopa/Levodopa 50-200 MG Tab.ER PO PRN
[2024-08-14 06:56] LABS: BASOPHILS PERCENT AUTO 0.2 % (0.2-1.2); EOSINOPHILS ABSOLUTE AUTO 0.5 x10^3/uL (0.0-0.5); EOSINOPHILS PERCENT AUTO 7.8 % (0.0-4.0); HEMATOCRIT 41.4 % (40.0-52.0); HEMOGLOBIN 13.7 g/dL (14.0-18.0); IMMATURE GRAN ABSOLUTE AUTO 0.01 x10^3/uL (0.00-0.07); LYMPHOCYTES ABSOLUTE AUTO 1.9 x10^3/uL (1.0-4.8); LYMPHOCYTES PERCENT AUTO 30.6 % (25.0-50.0); MEAN CORPUSCULAR HEMOGLOBIN 31.1 pg (26.0-32.0); MEAN CORPUSCULAR HGB CONC 33.1 g/dL (32.0-36.0); MEAN CORPUSCULAR VOLUME 93.9 fL (78.0-93.0); MONOCYTES ABSOLUTE AUTO 0.9 x10^3/uL (0.0-0.8); MONOCYTES PERCENT AUTO 13.8 % (2.0-11.0); NEUTROPHILS ABSOLUTE AUTO 2.9 x10^3/uL (1.8-7.7); NEUTROPHILS PERCENT AUTO 47.4 % (50.0-80.0); PLATELET COUNT,PLT 138 x10^3/uL (130-400); RED BLOOD CELL COUNT 4.41 x10^6/uL (4.5-6.0); WHITE BLOOD CELL COUNT,WBC 6.2 x10^3/uL (4.0-10.0)
[2024-08-14 07:08] LABS: INR 1.9 (0.9-1.1); PROTHROMBIN TIME 19.4 SEC (9.6-12.0)
[2024-08-14 07:09] LABS: CALCIUM 8.7 mg/dL (8.5-10.1); CREATININE 1.2 mg/dL (0.70-1.30); EST CRCL DRUG DOSING (CG) 47.46 mL/min; POTASSIUM,K 3.6 mmol/L (3.5-5.1)
[2024-08-14 07:12] LABS: ANION GAP 10.6 mmol/L (5-15)
[2024-08-14] MEDS: Albuterol/Ipratropium 3.0-0.5 MG/3 ML Neb Soln NEB ONE (09:25)
[2024-08-14] MEDS: guaiFENesin 600 MG Tab.ER PO SCH (10:00)
[2024-08-14] MEDS: Albuterol/Ipratropium 3.0-0.5 MG/3 ML Neb Soln NEB PRN (13:17)
[2024-08-14] MEDS ORDERED: Warfarin 2.5 MG Tab PO SCH (21:00)
== END 2024-08-14 16:00 | disposition home or self-care (01) | DRG 291 ==
LOC: VM.ED 15:14 → VM.MS 16:36
PROVIDERS: ADMIT Internal Medicine; ATTEND Internal Medicine
DX: I11.0 Hypertensive heart disease with heart failure (principal); I50.9 Heart failure, unspecified; I50.33 Acute on chronic diastolic (congestive) heart failure; R51.9 Headache, unspecified; Z68.41 Body mass index [BMI] 40.0-44.9, adult; G89.29 Other chronic pain; M54.9 Dorsalgia, unspecified; I25.10 Atherosclerotic heart disease of native coronary artery without angina pectoris; Z79.899 Other long term (current) drug therapy; E66.9 Obesity, unspecified; G47.33 Obstructive sleep apnea (adult) (pediatric); Z79.82 Long term (current) use of aspirin; W19.XXXA Unspecified fall, initial encounter; M19.90 Unspecified osteoarthritis, unspecified site; J06.9 Acute upper respiratory infection, unspecified; N40.1 Benign prostatic hyperplasia with lower urinary tract symptoms; G25.81 Restless legs syndrome; G20.A1 Parkinson's disease without dyskinesia, without mention of fluctuations; F06.70 Mild neurocognitive disorder due to known physiological condition without behavioral disturbance; E78.00 Pure hypercholesterolemia, unspecified; M10.9 Gout, unspecified; Z86.16 Personal history of COVID-19; Z79.01 Long term (current) use of anticoagulants; Z95.5 Presence of coronary angioplasty implant and graft; Z99.81 Dependence on supplemental oxygen; Z87.440 Personal history of urinary (tract) infections; Z95.1 Presence of aortocoronary bypass graft; Z86.711 Personal history of pulmonary embolism; Z98.890 Other specified postprocedural states; Z87.891 Personal history of nicotine dependence; Z98.49 Cataract extraction status, unspecified eye
CPT/HCPCS: 36415; 70450; 70548; 70553; 71045; 80048; 80053; 81001; 82550; 83605; 83735; 83880; 84484; 85025; 85610; 87428-QW; 93005; 93010; 94640; 94660; 97110-GO; 97110-GP; 97112-GP; 97116-GP; 97162-GP; 97166-GO; 97535-GO; 99284; 99285; A9270-GY; J1940; J7620-GY